=== PATIENT | female | born 1995 | race Caucasian/White ===

== ENCOUNTER 2016-12-02 15:42 | Emergency (ER) | payer OTHER ==
[~2016-12-02] VITALS: Ht 167.6 cm; Wt 53.3 kg
[2016-12-02] MEDS ORDERED: ABILIFY2 MG PO (20:11)
[2016-12-02 20:46] VITALS: BP 137/87
== END 2016-12-02 20:56 | disposition home or self-care (01) ==
LOC: EME 15:42
DX: F32.9 Major depressive disorder, single episode, unspecified (principal); F41.9 Anxiety disorder, unspecified
CPT/HCPCS: 90839; 99281; 99283